=== PATIENT | male | born 1995 | race African-American/Black ===

== ENCOUNTER 2017-02-04 20:31 | Emergency (ER) | payer OTHER ==
[~2017-02-04] VITALS: Ht 177.8 cm; Wt 72.0 kg
[~2017-02-04 20:31] MED LIST: Z.0.NO CURRENT MEDS
[2017-02-04 20:35] VITALS: BP 145/81; PULSE 64; RESP 16; TEMP 97.7; O2SAT 99
--- NOTE | 2017-02-04 20:51 | PD ---
HPI Chief Complaint: Cardiac Complaint Time Seen by Provider: 20:51 Travel History International Travel<30 days: No Contact w/Intl Traveler<30days: No Traveled to known affect area: No History of Present Illness HPI 21-year-old male with history of ADHD presents to emergency department for evaluation of sensation that his heart is beating faster throughout the course of the day. He believes he is having anxiety. Patient states that he smoked marijuana daily for the last 5 years until 2 days ago. He states he was smoking cannabinoids with his friend 2 days ago when he felt a strange sensation. He states he stopped smoking at that time and has not smoked since then. Denies any other illicit drug use. States that his mother gave him a Valium today when he was having anxiety. He went to sleep but woke up and his anxiety is worse. Denies any chest pain. No shortness breath. No recent illnesses, fever, chills. No cardiac history. No other symptoms to report. PFSH Past Medical History ADHD: Yes Diminished Hearing: No Gestational Age in Weeks: 39 Immunizations Current: Yes Tetanus Vaccination: Unknown Influenza Vaccination: No Past Surgical History Surgical History: No Previous Surgery Social History Alcohol Use: No Tobacco Use: No Substance Use: Yes (STOPPED RECENTLY 02/04/17) Allergies-Medications (Allergen,Severity, Reaction): Coded Allergies: No Known Allergies (Verified , 02/04/17) Reported Meds & Prescriptions Reported Meds & Active Scripts Active Vistaril (Hydroxyzine Pamoate) 25 Mg Cap 25 Mg PO Q6H PRN Review of Systems Except as stated in HPI: all other systems reviewed are Neg Physical Exam Narrative GENERAL: Well-nourished male patient, ambulatory and in no acute distress SKIN: Warm and dry. HEAD: Atraumatic. Normocephalic. EYES: Pupils equal and round. No scleral icterus. No injection or drainage. ENT: No nasal bleeding or discharge. Mucous membranes pink and moist. NECK: Trachea midline. No JVD. CARDIOVASCULAR: Regular rate and rhythm. No murmur appreciated. RESPIRATORY: No accessory muscle use. Clear to auscultation. Breath sounds equal bilaterally. GASTROINTESTINAL: Abdomen soft, non-tender, nondistended. Hepatic and splenic margins not palpable. MUSCULOSKELETAL: No obvious deformities. No clubbing. No cyanosis. No edema. NEUROLOGICAL: Awake and alert. No obvious cranial nerve deficits. Motor grossly within normal limits. Normal speech. PSYCHIATRIC: Appropriate mood and affect; insight and judgment normal. Data Data Last Documented VS Vital Signs Date Time Temp Pulse Resp B/P Pulse Ox O2 Delivery O2 Flow Rate FiO2 02/04/17 21:07 71 18 153/79 100 Room Air 150/76 02/04/17 20:35 97.7 Orders Electrocardiogram (02/04/17 20:50) Basic Metabolic Panel (Bmp) (02/04/17 20:50) Complete Blood Count With Diff (02/04/17 20:50) Magnesium (Mg) (02/04/17 20:50) Chest, Single Ap (02/04/17 20:50) Ecg Monitoring (02/04/17 20:50) Bilateral Bp Monitoring (02/04/17 20:50) Iv Access Insert/Monitor (02/04/17 20:50) Oximetry (02/04/17 20:50) Oxygen Administration (02/04/17 20:50) Sodium Chloride 0.9% Flush (Ns Flush) (02/04/17 21:00) Sodium Chlor 0.9% 1000 Ml Inj (Ns 1000 M (02/04/17 21:00) Hydroxyzine Pamoate (Vistaril) (02/04/17 21:00) Urinalysis - C+S If Indicated (02/04/17 20:56) Drug Screen, Random Urine (02/04/17 20:56) Ckmb (Isoenzyme) Profile (02/04/17 20:58) Prothrombin Time / Inr (Pt) (02/04/17 20:58) Act Partial Throm Time (Ptt) (02/04/17 20:58) Troponin I (02/04/17 20:58) CKMB (02/04/17 20:56) CKMB% (02/04/17 20:56) Labs Laboratory Tests Test 02/04/17 20:56 White Blood Count 11.0 TH/MM3 Red Blood Count 5.66 MIL/MM3 Hemoglobin 15.9 GM/DL Hematocrit 46.3 % Mean Corpuscular Volume 81.8 FL Mean Corpuscular Hemoglobin 28.1 PG Mean Corpuscular Hemoglobin 34.3 % Concent Red Cell Distribution Width 12.9 % Platelet Count 219 TH/MM3 Mean Platelet Volume 9.6 FL Neutrophils (%) (Auto) 60.6 % Lymphocytes (%) (Auto) 33.0 % Monocytes (%) (Auto) 5.7 % Eosinophils (%) (Auto) 0.4 % Basophils (%) (Auto) 0.3 % Neutrophils # (Auto) 6.7 TH/MM3 Lymphocytes # (Auto) 3.6 TH/MM3 Monocytes # (Auto) 0.6 TH/MM3 Eosinophils # (Auto) 0.0 TH/MM3 Basophils # (Auto) 0.0 TH/MM3 CBC Comment DIFF FINAL Differential Comment Prothrombin Time 11.4 SEC Prothromb Time International 1.0 RATIO Ratio Activated Partial 27.4 SEC Thromboplast Time Urine Color COLORLESS Urine Turbidity HAZY Urine pH 7.0 Urine Specific [place] 1.003 Urine Protein NEG mg/dL Urine Glucose (UA) NEG mg/dL Urine Ketones NEG mg/dL Urine Occult Blood NEG Urine Nitrite NEG Urine Bilirubin NEG Urine Urobilinogen LESS THAN 2.0 MG/DL Urine Leukocyte Esterase NEG Urine WBC 2 /hpf Microscopic Urinalysis Comment CULT NOT INDICATED Sodium Level 138 MEQ/L Potassium Level 3.4 MEQ/L Chloride Level 102 MEQ/L Carbon Dioxide Level 25.6 MEQ/L Anion Gap 10 MEQ/L Blood Urea Nitrogen 13 MG/DL Creatinine 1.11 MG/DL Estimat Glomerular Filtration 103 ML/MIN Rate Random Glucose 104 MG/DL Calcium Level 9.1 MG/DL Magnesium Level 2.2 MG/DL Total Creatine Kinase 186 U/L Creatine Kinase MB 1.7 NG/ML Troponin I LESS THAN 0.02 NG/ML Urine Opiates Screen NEG Urine Barbiturates Screen NEG Urine Amphetamines Screen NEG Urine Benzodiazepines Screen POS Urine Cocaine Screen NEG Urine Cannabinoids Screen POS [facility] Medical Decision Making Medical Screen Exam Complete: Yes Emergency Medical Condition: Yes Medical Record Reviewed: Yes Differential Diagnosis Anxiety versus withdrawal versus mood disorder versus personality disorder versus adjustment reaction disorder versus electrolyte abnormality Narrative Course 21-year-old male presents to the emergency department for evaluation. Patient appears without distress. Vital signs are stable. EKGs reviewed my attending physician. CBC and BMP are without acute concern. Troponin is less than 0.02. Patient is given Vistaril. States that he feels "a little better" upon reassessment. I have offered reassurance. His anxiety symptoms are possibly exacerbated from daily marijuana use with abrupt stop. I have encouraged counseling or psychiatric follow-up if an infiltrate ED persists but to return immediately with any acute worsening of symptoms. He and his mother agree with this plan care. Diagnosis Primary Impression: Anxiety Additional Impressions: Palpitations Cannabis abuse with physiological dependence Referrals: [facility] (Out patient) Primary Care Physician Patient Instructions: Anxiety (ED), General Instructions Additional Instructions: Follow-up with your primary care provider Seek counseling or psychiatric assistance to help if anxiety continues Return immediately with any acute worsening of symptoms Med/Other Pt SpecificInfo: Prescription(s) given Scripts Hydroxyzine Pamoate (Vistaril)25 Mg Cap25 Mg PO Q6H PRN (ANXIETY AND/OR INSOMNIA ) #20 CAP Ref 0 Prov:Mary Ann Fritz 02/04/17 Disposition: 01 DISCHARGE HOME Condition: Stable Mary Ann Fritz Feb 04, 2017 20:51
[2017-02-04 20:53] VITALS: RESP 18; O2SAT 100
[2017-02-04] MEDS ORDERED: SODIUM CHLORIDE 0.9% FLUSH 5 ML FLUSH IVF PRN (21:00)
[2017-02-04] MEDS ORDERED: SODIUM CHLOR 0.9% 1000 ML INJ 1,000 ML IV ONE (21:00)
[2017-02-04 21:07] VITALS: BP_SYST 150; BP_SYST 153; BP_DIAS 76; BP_DIAS 79; PULSE 71; RESP 18; O2SAT 100
--- NOTE | 2017-02-04 21:16 | RADRPT ---
EXAM DATE/TIME: 02/04/2017 21:00 [facility] COMPARISON: No previous studies available for comparison. INDICATIONS : Chest pain MEDICAL HISTORY : None. SURGICAL HISTORY : None. ENCOUNTER: Initial ACUITY: 2 days PAIN SCORE: 4/10 LOCATION: chest FINDINGS: A single view of the chest demonstrates the lungs to be symmetrically aerated without evidence of mas s, infiltrate or effusion. The cardiomediastinal contours are unremarkable. Osseous structures are intact. CONCLUSION: No acute disease. Elijah Morataya MD on February 04, 2017 at 21:15 Board Certified Radiologist. This report was verified electronically.
[2017-02-04 21:19] LABS: BLOOD, URINE NEG (NEG); GLUCOSE,URINE NEG (NEG); KETONE, URINE NEG (NEG); NITRITE,URINE NEG (NEG); URINE COLOR COLORLESS (YELLW/STRAW)
[2017-02-04 21:21] LABS: AUTOMATED NEUTROPHIL # 6.7 TH/MM3 (1.8-7.7); BASOPHIL % 0.3 % (0.0-2.0); EOSINOPHIL % 0.4 % (0.0-4.0); HEMATOCRIT 46.3 % (39.0-51.0); HEMO FLAGS DIFF FINAL; LYMPHOCYTE # 3.6 TH/MM3 (1.0-4.8); MEAN CELL VOLUME 81.8 FL (80.0-100.0); MEAN CORPUSCULAR HEMOGLOBIN 28.1 PG (27.0-34.0); MEAN CORPUSCULAR HGB CONC 34.3 % (32.0-36.0); MONO % 5.7 % (0.0-8.0); NEUT % 60.6 % (16.0-70.0); PLATELET COUNT 219 TH/MM3 (150-450); RED BLOOD COUNT 5.66 MIL/MM3 (4.50-5.90); RED CELL DISTRIBUTION WIDTH 12.9 % (11.6-17.2)
[2017-02-04 21:24] LABS: COMMENT (UR) CULT NOT INDICATED; CULTURE IF INDICATED CULT NOT INDICATED
[2017-02-04 21:26] LABS: AMPHETAMINE, URINE NEG (NEG); BARBITURATES, URINE NEG (NEG); COCAINE, URINE NEG (NEG)
[2017-02-04 21:31] LABS: BICARBONATE 25.6 MEQ/L (21.0-32.0); MAGNESIUM 2.2 MG/DL (1.5-2.5); POTASSIUM 3.4 MEQ/L (3.5-5.1)
[2017-02-04 21:32] LABS: APTT (PATIENT) 27.4 SEC (24.3-30.1); PROTHROMBIN TIME - PATIENT 11.4 SEC (9.8-11.6)
[2017-02-04 21:35] LABS: CREATINE KINASE 186 U/L (39-308)
[2017-02-04 21:47] LABS: CKMB 1.7 NG/ML (0.5-3.6)
[2017-02-04] MEDS ORDERED: VIST25CA PO (22:04)
--- NOTE | 2017-02-05 14:41 | EKG ---
Date Performed: 02/04/2017 Time Performed: 20:54:43 PTAGE: 21 years EKG: Sinus rhythm WITH SINUS ARRHYTHMIA NONSPECIFIC ST & T-WAVE ABNORMALITY BORDERLINE ECG NO PREVIOUS TRACING DOCTOR: Cj Albrecht Interpretating Date/Time 02/05/2017 14:40:01
== END 2017-02-04 22:16 | disposition home or self-care (01) ==
LOC: NEPE 20:31
DX: F41.9 Anxiety disorder, unspecified (principal); F12.20 Cannabis dependence, uncomplicated; I49.8 Other specified cardiac arrhythmias; R07.9 Chest pain, unspecified
CPT/HCPCS: 71010; 80048; 80307; 81001; 82550; 82552; 83735; 84484; 85025; 85610; 85730; 93005; 96360; 99285; J7030